=== PATIENT | female | born 2000 | race Caucasian/White ===

== ENCOUNTER 2019-09-23 11:43 | Outpatient (CLI) | payer BC, SELFPAY ==
[2019-09-23 22:45] LABS: SARS-CoV-2 RNA PCR Negative
== END 2019-09-23 11:44 | disposition home or self-care (01) ==
PROVIDERS: PCP Nurse Practitioner Family; Visit Provider Nurse Practitioner Family
DX: Z20.828 Contact with and (suspected) exposure to other viral communicable diseases (principal)
CPT/HCPCS: 87635; C9803; U0003